=== PATIENT | male | born 1950 | race Caucasian/White ===

== ENCOUNTER 2019-02-03 00:36 | Emergency (ER) | payer MEDICARE, SELFPAY ==
[2019-02-03 00:37] VITALS: BP 159/81; PULSE 87; RESP 16; TEMP 36.9; O2SAT 98; BMI 19.9
--- NOTE | 2019-02-03 00:48 | RAD_ITS ---
STUDY: X-RAY CHEST REASON FOR EXAM: Male, 68 years old. Chest pain, shortness breath, throwing up blood. TECHNIQUE: AP portable chest. COMPARISON: September 14, 2014. FINDINGS: Lungs are hyperinflated. Subtle left perihilar airspace opacity. No pleural effusions. No pneumothorax. Normal size heart. Normal mediastinum and jeana. Normal visualized pulmonary arteries. Normal visualized aortic arch and descending thoracic aorta. Degenerative changes of the thoracic spine. Normal visualized ribs, clavicles, and shoulders. There is no demonstrated abnormality of the visualized soft tissue structures of the upper abdomen. RAD/Chest 1 View (Portable) IMPRESSION: Left perihilar airspace opacity. Correlate with CT chest. COPD. Electronically Signed: Pramod Pryor MD at 1:33 EDT , Service support ,
--- NOTE | 2019-02-03 00:48 | EKG12_ITS ---
Test Reason : CP Blood Pressure : / mmHG Vent. Rate : 083 BPM Atrial Rate : 083 BPM P-R Int : 134 ms QRS Dur : 092 ms QT Int : 392 ms P-R-T Axes : 085 103 063 degrees QTc Int : 460 ms Normal sinus rhythm Possible Left atrial enlargement Rightward axis Borderline ECG Confirmed by ARELI VELARDE, MALAIKA ([id number]), video news editor GISEL WARREN ([id number]) on 02/04/2019 8:10:28 AM Referred By: DR COY Confirmed By:MALAIKA SINGLETON MD
--- NOTE | 2019-02-03 00:49 | CT_ITS ---
STUDY: CT ABDOMEN AND PELVIS WITHOUT CONTRAST REASON FOR EXAM: Male, 68 years old. Burning pain in stomach. Rib pain. RADIATION DOSAGE (If Supplied By Facility): CTDIvol = ( 8.52 ) mGy, DLP = ( 384.47 ) mGycm TECHNIQUE: Transaxial images were obtained from the dome of the diaphragm to the symphysis pubis without oral contrast, and without intravenous contrast. Sagittal and coronal images were reconstructed. Individualized dose optimization techniques were used for this CT. COMPARISON: None. FINDINGS: The visualized lung bases are unremarkable. The visualized portions of the heart are within normal limits. Normal liver. Normal gallbladder and extrahepatic biliary system. There are multiple benign calcified granulomata of the spleen. Normal pancreas. Normal bilateral adrenal glands. Normal right kidney. Normal left kidney. Stomach distended with fluid and debris. Normal small intestine. Normal colon. The appendix is visualized and appears normal. Normal abdominal aorta. Normal inferior vena cava. Normal retroperitoneum. No intra-abdominal free air. Normal urinary bladder. Prostate gland is not enlarged. Normal abdominal wall. Normal osseous structures. CT/Abdomen/Pelvis without Cont IMPRESSION: No acute findings in the abdomen or pelvis. Stomach distended with fluid and debris. No intra-abdominal free air or free fluid collections. Old granulomatous disease. No fractures identified. Electronically Signed: Pramod Pryor MD at 3:45 EDT , Service support ,
--- NOTE | 2019-02-03 00:49 | CT_ITS ---
HISTORY: PT STATED BURNING PAIN IN STOMACH, RIB PAIN possible left lung infiltrate EXAMINATION: CT Chest W/O Contrast TECHNIQUE: Helically acquired images were obtained of the chest. A radiation dose optimization technique was used for this scan. IV Contrast dosage and agent: None. COMPARISON: Portable chest 02/03/2019 FINDINGS: Suspected left perihilar infiltrate by recent portable chest appears chest wall related. No corresponding infiltrate by current CT. Chronic lung disease with bilateral moderate centrilobular emphysema, more so within the upper and midlung zones. Mild distal lobular emphysema within the upper lung zones. Biapical mild pleural parenchymal scarring. No acute pulmonary infiltrate or suspicious lesion. No pleural effusion. Normal heart size. No pericardial effusion. Mediastinal AP window and left hilar small calcified granulomas. No suspicious lymph node enlargement. Multiple small calcified splenic granulomas. Bones: No acute osseous abnormality. CT/Chest without Contrast IMPRESSION: 1. No acute cardiopulmonary disease. No acute infiltrate seen. 2. Chronic lung disease with emphysema and old granulomatous disease. Comment: Suspected left perihilar infiltrate by portable chest appears chest wall related and related to emphysema. Individualized dose optimization techniques were used for this CT. at 0252 Reported and signed by: Shady Frias MD Electronically Signed: Shady Frias, at 2:51 EDT Tel , Service support ,
--- NOTE | 2019-02-03 00:52 | ED.VISSUMM ---
- ER Visit Summary Date of Service: 02/03/19 Chief Complaint: Chest pain abdominal pain History of Present Illness: The patient is a 68 M with above complaints, these have been on and off for about a week. Pain is in the chest and epigastric region. Pain is worse after he drinks coffee, apparently drinks quite a bit of coffee. He smokes and he has occasional alcohol. He has no lower abdominal pain no recent fever or chills. The pain is not tearing or in his back. He ate a jelly doughnut and he had light red vomitus. No coffee-ground emesis or dark emesis. Physical Examination: Not appear in acute distress. Moist mucous membranes, no obvious facial deformity No C-spine tenderness supple neck. Regular rate and rhythm without any obvious murmurs Clear lungs bilaterally speaking in full sentences without any obvious respiratory distress Abdomen soft with some epigastric tenderness to palpation Moves all extremities without any difficulty or pain. Skin does not show any obvious rashes or lesions, no trauma. Alert oriented ?3 with no gross focal deficit Emergency Department Course and Treatment: Patient is well. He has guaiac negative stools I doubt he had a GI bleed. His symptoms are consistent with gastritis. I educated him about smoking caffeine use alcohol use and to avoid certain foods. I will put him on a PPI and I will discharge him in stable condition ] Disposition: Discharge stable condition Impression: Epigastric pain Gastritis This note was generated with [employer] dictation software. It may contain incorrect words, spelling, and punctuation that were not noted in review of the chart prior to signing ED Disposition - Plan for ED Patient: Disposition: Home or Assisted Living Instructions: Treating Gastritis, Understanding Gastritis, ED Gastritis, ED PUD Vs Gastritis Prescriptions: Omeprazole 40 mg PO DAILY #30 capsule.dr Referrals: Piotr Mccurdy MD [NON-STAFF] - 3-5 Days
[2019-02-03] MEDS: Ondansetron 4 MG/2 ML Vial IV (01:06)
[2019-02-03] MEDS: 0.9% Normal Saline 1,000 ML 1000 ML IV (01:06)
[2019-02-03 01:15] LABS: Absolute Lymphocyte Count 1.76 X10^3/ul (0.83-4.51); Absolute Neutrophil Count 4.6 X10^3/uL (2.0-7.7); Basophil# 0.01 X10^3/uL; Basophil% 0.1 % (0-1); Eosinophil# 0.94 X10^3/uL; Hematocrit 38.4 % (40-54); Hemoglobin 13.7 g/dl (13.0-16.5); Lymphocyte # 1.76 X10^3/ul (4.0); Lymphocyte % 22.5 % (19-41); Mean Corp Hgb Conc 35.7 g/gl (32-36); Mean Corpuscular Hgb 33.7 pg (27.0-32.0); Mean Corpuscular Volume 94.6 fL (80-94); Monocyte% 6.4 % (0-10); Neutrophil % 58.9 % (47-70); POSITIVE COUNT NO; POSITIVE DIFFERENTIAL NO; POSITIVE MORPHOLOGY NO; Platelet Count 208 K/mm3 (150-450); RBC Distribution Width CV 14.1 % (11.6-14.6); RBC Distribution Width SD 48.3 fl (35.1-43.9); Red Blood Count 4.06 M/mm3 (4.6-6.2); White Blood Count 7.8 K/mm3 (4.4-11.0)
[2019-02-03 01:30] LABS: AST(SGOT) 18 U/L (15-37); Alanine Aminotransfer ALT/SGPT 21 U/L (16-61); Albumin, Serum 3.6 g/dL (3.2-5.0); Alkaline Phosphatase 76 U/L (45-117); Anion Gap 6 (5-15); BUN 15 mg/dL (7-18); Calcium,Total 8.5 mg/dL (8.5-10.1); Chloride 105 mmol/L (98-107); Creatinine, Serum 0.83 mg/dL (0.70-1.30); EST Glomerular Filtration Rate 97 mL/min (>60); Est Glom Filt Rate - Afr Amer 118 mL/min (>60); Estimated Creatinine Clearance 64.63 ml/min; Globulin 3.5 g/dL (2.2-4.2); Glucose 102 mg/dL (74-106); Lipase 74 U/L (73-393); Potassium 4.2 mmol/L (3.5-5.1); Protein, Total 7.1 g/dL (6.4-8.2); Sodium Level 138 mmol/L (136-145)
[2019-02-03 01:51] VITALS: PULSE 75; RESP 18; O2SAT 100
[2019-02-03 02:11] VITALS: PULSE 74; RESP 16; O2SAT 100
[2019-02-03 03:08] VITALS: BP 138/82; PULSE 89; RESP 17; O2SAT 99
[2019-02-03 03:52] VITALS: BP 145/81; PULSE 76; RESP 20; O2SAT 98
== END 2019-02-03 03:53 | disposition home or self-care (01) ==
PROVIDERS: Emergency Provider Emergency Medicine
DX: K29.70 Gastritis, unspecified, without bleeding (principal); R10.13 Epigastric pain; K21.9 Gastro-esophageal reflux disease without esophagitis; F17.200 Nicotine dependence, unspecified, uncomplicated
CPT/HCPCS: 71045; 71250; 74176; 80053; 82274; 83690; 84484; 85025; 93005; 96361; 96374; 99285; J7030; A4216; J2405